=== PATIENT | female | born 1990 | race Caucasian/White ===

== ENCOUNTER → 2023-08-09 11:05 | Outpatient (CLI) | payer OTHER, SELFPAY ==
[2023-08-10 13:36] LABS: Candida species Negative (Negative); Gardnerella vaginalis Negative (Negative); Trichomoas vaginalis Negative (Negative)
== END ==
PROVIDERS: PCP Internal Medicine; Visit Provider Physician Assistant Medical
DX: N89.8 Other specified noninflammatory disorders of vagina (principal)
CPT/HCPCS: 87480; 87510; 87660